=== PATIENT | female | born 1990 | race Caucasian/White ===

== ENCOUNTER 2019-04-15 13:13 | Emergency (ER) | payer BC ==
[2019-04-15 13:48] VITALS: BP 135/94
--- NOTE | 2019-04-15 14:01 | UC ---
Respiratory Complaint HPI - HPI Summary HPI Summary: 3 week history of cough, which began with a tickle and has progressed to a hacking, harsh productive cough. No fever or shortness of breath. Does not worsen with exercise, but is disrupting sleep. For the past week she has been using flonase and zyrtec with no change in cough. No hx of reflux. Gets some paroxysms of cough, almost to the point of vomiting. Has had pertussis booster, around 2017 when her nephew was born. In week 2 of a pill pack. - History of Current Complaint Chief Complaint: UCRespiratory Stated Complaint: COUGH Time Seen by Provider: 04/15/19 13:49 Hx Obtained From: Patient Hx Last Menstrual Period: "last week" Onset/Duration: Gradual Onset, Lasting Weeks - 3 Timing: Intermittent Episodes Severity Initially: Mild Severity Currently: Moderate Pain Intensity: 0 Character: Cough: Productive Aggravating Factors: Deep Breaths, Recumbent Position Alleviating Factors: OTC Meds - using robitussin, Upright Position - Allergies/Home Medications Allergies/Adverse Reactions: Allergies Allergy/AdvReac Type Severity Reaction Status Date / Time No Known Allergies Allergy Verified 04/15/19 13:43 Home Medications: Home Medications Norgestimate-Ethinyl Estradiol [Tri-Sprintec 0.18/0.215/0.25 mg-35 Mcg] 1 tab PO DAILY 04/15/19 [History Confirmed 04/15/19] ValACYclovir (*) [Valtrex 500 mg (*)] 500 mg PO SEE INSTRUCTIONS PRN 04/15/19 [ History Confirmed 04/15/19] PMH/Surg Hx/FS Hx/Imm Hx Previously Healthy: Yes - Surgical History Surgical History: None - Family History Known Family History: Positive: Non-Contributory - Social History Occupation: Employed Full-time Lives: With Family Alcohol Use: Occasionally Substance Use Type: None Smoking Status (MU): Never Smoked Tobacco Review of Systems All Other Systems Reviewed And Are Negative: Yes Constitutional: Positive: Fatigue. Negative: Fever Skin: Positive: Negative Eyes: Positive: Negative ENT: Negative: Sore Throat, Nasal Discharge, Sinus Congestion Respiratory: Positive: Cough Cardiovascular: Positive: Negative Gastrointestinal: Positive: Negative. Negative: Vomiting, Diarrhea, Nausea Genitourinary: Positive: Negative Motor: Positive: Negative Neurovascular: Positive: Negative Musculoskeletal: Positive: Negative Neurological: Negative: Headache Psychological: Positive: Negative Is Patient Immunocompromised?: No Physical Exam Triage Information Reviewed: Yes Appearance: Well-Appearing, No Pain Distress Vital Signs: Initial Vital Signs Temp 98.9 F 04/15/19 13:43 Pulse 68 04/15/19 13:43 Resp 16 04/15/19 13:43 BP 135/94 04/15/19 13:43 Pulse Ox 100 04/15/19 13:43 ENT: Positive: Pharynx normal, TMs normal Neck: Positive: Supple, Nontender, No Lymphadenopathy Respiratory: Positive: No respiratory distress, No accessory muscle use, Rhonchi - scattered throughout both lung yancey., Wheezing - some expiratory wheezes Cardiovascular: Positive: RRR, No Murmur Musculoskeletal Exam: Normal Neurological Exam: Normal Psychological Exam: Normal Skin Exam: Normal Respiratory Course/Dx - Course Course Of Treatment: zpack for possible mycoplasma, continue cough suppressant as needed. - Differential Dx/Diagnosis Differential Diagnosis/HQI/PQRI: Asthma, Bronchitis, Lower Resp Infection Provider Diagnosis: Mycoplasma infection Discharge ED - Sign-Out/Discharge Documenting (check all that apply): Patient Departure All imaging exams completed and their final reports reviewed: No Studies - Discharge Plan Condition: Good Disposition: HOME Prescriptions: Azithromyxin TERRY (NF) [Z-Terry (Zithromax) 250 mg tabs #6] 2 tab PO .TODAY, THEN 1 DAILY #6 tab Patient Education Materials: Acute Bronchitis (ED) Referrals: No Primary Care Phys,NOPCP [Primary Care Provider] - Additional Instructions: Begin aziithromycin for possible Mycoplasma infection. Anticipate that this could interact with your oral contraceptive and use back up protection. You might try use of Delsym (long acting dextromethorphan) for suppression of cough. If you do not have a response in 5 to 7 days, further testing will need to be done (chest xray). - Billing Disposition and Condition Condition: GOOD Disposition: Home
== END 2019-04-15 14:32 | disposition home or self-care (01) ==
LOC: UCCORT 13:13
DX: R05 Cough (principal); B96.0 Mycoplasma pneumoniae [M. pneumoniae] as the cause of diseases classified elsewhere; Z79.899 Other long term (current) drug therapy
CPT/HCPCS: 99202; G0463